=== PATIENT | male | born 1975 | race Caucasian/White ===

== ENCOUNTER 2023-04-15 08:03 | Outpatient (AMB) | payer OTHER, SELFPAY ==
--- NOTE | 2023-04-15 08:20 | AM.OFFWIN_ITS ---
Intake Vital Signs 04/15/23 08:27 BP 120/80 Blood Pressure Location Lt brachial Position Sitting Pulse 94 Pulse Source Pulse Oximeter Temp 98 F Temp Source Temporal Artery Scan Pulse Oximetry (%) 97 Oxygen Delivery Method Room Air Intake Visit Reasons: MARKETING SUPPORT COORDINATOR Sinus/respiratory [phone] Intake Note: Patient here for possible sinus infection. Trouble breathing, pressure in eyes and nose, headaches that started Tuesday night. Patient Tobacco Use Status: Current everyday Tobacco user Allergies No Known Allergies [No Known Allergies*] Allergy (Unverified 04/15/23 08:22) Do you need a note to return to daycare/school/sports/work: No HPI HPI Comments History of Present Illness Details This is a 47-year-old male presents to the office today for a sick visit. Patient reports sinus pressure/congestion, headaches/head pressure, dry cough, sore throat, and mild bilateral otalgia x3 days. Patient reports low- grade fevers. He reports positive sick contact with his , who had similar symptoms. He denies any chest pain or shortness of breath. He denies any abdominal pain or nausea/vomiting/diarrhea. [facility] Social History Patient Tobacco Use Status: Current everyday Tobacco user Review of Systems Const All systems reviewed & are unremarkable except as noted in HPI and below Reports body aches and Reports fever(s) ENT Reports nasal congestion, Reports nasal discharge, Reports sinus pain, Reports sinus pressure and Reports sore throat Card Denies chest pain, Denies chest pain at rest, Denies chest pain with activity, Denies dyspnea and Denies dyspnea on exertion Resp Reports cough, Denies dyspnea and Denies dyspnea on exertion GI Denies abdominal pain, Denies diarrhea, Denies nausea and Denies vomiting Physical Exam Vital Signs: Last Vital Signs Temp 98 F 04/15/23 08:27 Pulse 94 04/15/23 08:27 BP 120/80 04/15/23 08:27 Pulse Ox 97 04/15/23 08:27 Oxygen Delivery Method Room Air 04/15/23 08:27 Assessment & Plan Assessment & Plan (1) URI (upper respiratory infection): Code(s): J06.9 - Acute upper respiratory infection, unspecified Plan Patient presenting with signs and symptoms most consistent with acute respiratory tract infection. Recommended symptomatic management including rest, increased fluids, advil/tylenol for pain/fever, and over the counter throat lozenges/decongestants. PO amoxicillin 500 mg every 8 hours x5 days. Patient advised to follow up here or go to the emergency room for worsening/persistent symptoms. Patient verbalizes understanding and he is agreeable with the plan. Medications: New amoxicillin 500 mg PO Q8H 15 caps 0RF Coding Level of Care Code New Pt Level 3 (99023) Diagnoses URI (upper respiratory infection) J06.9
[2023-04-15 08:27] VITALS: BP 120/80; PULSE 94; TEMP 36.6; O2SAT 97
== END 2023-04-15 09:02 | disposition home or self-care (01) ==
PROVIDERS: PCP Internal Medicine; Visit Provider Physician Assistant Medical
DX: J06.9 Acute upper respiratory infection, unspecified (principal)
CPT/HCPCS: 99203

== ENCOUNTER 2024-04-23 08:15 | Outpatient (AMB) | payer OTHER, SELFPAY ==
--- NOTE | 2024-04-23 08:47 | AM.OFFWIN_ITS ---
Intake Vital Signs 04/23/24 08:54 Height 5 ft 10 in Weight 228 lb BMI 32.7 BP 130/84 Blood Pressure Location Rt brachial Position Sitting Pulse 75 Pulse Source Pulse Oximeter Temp 98.3 F Temp Source Oral Pulse Oximetry (%) 98 Oxygen Delivery Method Room Air Intake Visit Reasons: EP rash Intake Note: pt here c/o rash. Multiple spots. Started last weekend Patient Tobacco Use Status: Current everyday Tobacco user Allergies No Known Allergies [No Known Allergies*] Allergy (Verified 04/23/24 08:47) Do you need a note to return to daycare/school/sports/work: No HPI EP rash HPI Details 48 yr old male presents to the office fo r a sick visit. Has a rash in the scalp for the past few days. Oozing lesions with discomfirt. Skin under the left lower eyelid is swollen PFSH Social History Patient Tobacco Use Status: Current everyday Tobacco user Physical Exam Vital Signs: Last Vital Signs Temp 98.3 F 04/23/24 08:54 Pulse 75 04/23/24 08:54 BP 130/84 04/23/24 08:54 Pulse Ox 98 04/23/24 08:54 Oxygen Delivery Method Room Air 04/23/24 08:54 BMI result Body Mass Index 32.7 Skin Other: Scalp: Occipital area: 3 cm rash in the the area, oozing erythematous lesions with mccabe crusting within the hairline. Few lesions on the right arm and shoulder. Assessment & Plan Assessment & Plan (1) Rash: Code(s): R21 - Rash and other nonspecific skin eruption Plan: Folliculitis vs allergic dermatitis. Prednisone and Cephalexin added. Advised to remove neck jewellery. Tapering dose of prednisone. If sx do not improve to follow up here Coding Level of Care Code Est Pt Level 3 (22749) Diagnoses Rash R21
[2024-04-23 08:54] VITALS: BP 130/84; PULSE 75; TEMP 36.8; O2SAT 98; BMI 32.7
== END 2024-04-23 09:29 | disposition home or self-care (01) ==
PROVIDERS: PCP Internal Medicine; Visit Provider Internal Medicine
DX: R21 Rash and other nonspecific skin eruption (principal)
CPT/HCPCS: 99213

== ENCOUNTER 2024-05-09 08:04 | Outpatient (AMB) | payer OTHER, SELFPAY ==
--- NOTE | 2024-05-09 08:05 | MHC.OFFWIV ---
Intake Vital Signs 05/09/24 08:06 Height 5 ft 10 in Weight 230 lb BMI 33.0 BP 116/80 Blood Pressure Location Lt brachial Position Sitting Pulse 79 Pulse Source Pulse Oximeter Temp 98.4 F Temp Source Oral Pulse Oximetry (%) 97 Oxygen Delivery Method Room Air Intake Visit Reasons: Rash back of,arm pits (2nd [place] visit) Intake Note: pt c/o rash. Ongoing Patient Tobacco Use Status: Current everyday Tobacco user Allergies No Known Allergies [No Known Allergies*] Allergy (Verified 05/09/24 08:05) Do you need a note to return to daycare/school/sports/work: No HPI Rash back of,arm pits (2nd [place] visit) HPI Details This note is constructed using voice recognition software. While every effort has been made to ensure accuracy, home based assistant errors may have been included. The patient is a 48 year old male who presents to the clinic today with rash to scalp and arms. Patient was last seen in the walk-in clinic several weeks ago for similar and treated with antibiotics as well as steroid, he noted that he had a couple of days where it seemed like symptoms were improving, however they got worse and came back. He notes that the area on the scalp is itchy and it drains a yellow discharge. No fever, chills. He has no pain. No erythematous streaking PFSH Social History Patient Tobacco Use Status: Current everyday Tobacco user Review of Systems Const All systems reviewed & are unremarkable except as noted in HPI and below Physical Exam Vital Signs: Last Vital Signs Temp 98.4 F 05/09/24 08:06 Pulse 79 05/09/24 08:06 BP 116/80 05/09/24 08:06 Pulse Ox 97 05/09/24 08:06 Oxygen Delivery Method Room Air 05/09/24 08:06 BMI result Body Mass Index 33.0 Const General: cooperative, healthy appearing, comfortable, no acute distress and alert Orientation/consciousness: patient oriented x3 Limitations: no limitations Skin Other: Dry plaques with yellow-green discharge and scaliness in scalp, traveling down the neck. Similar lesions to the axilla. No erythema, no warmth. General skin exam: no rashes or lesions noted, elasticity normal and turgor normal Neuro General: patient oriented x3 Psych Appearance: grossly normal Mental Status: mental status grossly normal Speech and movement: Normal speech and movement present Affect: normal affect Assessment & Plan Assessment & Plan (1) Seborrheic dermatitis: Code(s): L21.9 - Seborrheic dermatitis, unspecified Plan: Previous note reviewed. Discussed possible treatment modalities, patient would like to try a additional prednisone as this has helped him in the past. We will do prednisone burst 5 days to help with symptomatic relief. Additionally we will treat with ketoconazole shampoo. Reviewed instructions for use. Advised patient that this may take 2-4 weeks for resolution of symptoms. 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 Plan See above for full details and plan. Medications: New ketoconazole 2% Apply shampoo to wet scalp, leaving in place for 5-10 minutes 2 times per week for 2 to 4 weeks 1 appl topical 2XW 4 weeks 120 mL 0RF Coding Level of Care Code Est Pt Level 4 (91359) Diagnoses Seborrheic dermatitis L21.9
[2024-05-09 08:06] VITALS: BP 116/80; PULSE 79; TEMP 36.9; O2SAT 97; BMI 33.0
== END 2024-05-09 09:05 | disposition home or self-care (01) ==
PROVIDERS: PCP Internal Medicine; Visit Provider Registered Nurse
DX: L21.9 Seborrheic dermatitis, unspecified (principal)
CPT/HCPCS: 99214

== ENCOUNTER 2024-08-08 08:01 | Outpatient (REF) | payer OTHER, SELFPAY ==
--- NOTE | ~2024-08-08 | XR_ITS ---
EXAMINATION: XR WRIST, RIGHT CLINICAL INFORMATION: Wrist pain COMPARISON: None available. TECHNIQUE: PA, lateral, and oblique views of the right wrist. FINDINGS: Diffuse osteopenia. Carpal alignment normal. There is no acute fracture, dislocation or destructive lesion. There is an old fifth metacarpal fracture observed. XR/XR wrist RT min 3V IMPRESSION: No acute findings. Electronically signed by: Parag Rivera MD 08/08/2024 12:08 PM [facility]
== END 2024-08-08 08:02 | disposition home or self-care (01) ==
LOC: HO.HMGCX 08:01
PROVIDERS: PCP Internal Medicine; Visit Provider Registered Nurse
DX: M25.531 Pain in right wrist (principal)
CPT/HCPCS: 73110; 99212

== ENCOUNTER 2024-08-08 08:01 | Outpatient (AMB) | payer OTHER, SELFPAY ==
[2024-08-08 08:07] VITALS: BP 130/98; PULSE 73; O2SAT 98
--- NOTE | 2024-08-08 08:07 | MHC.OFFWIV ---
Intake Vital Signs 08/08/24 08:07 Weight 232 lb 6 oz BP 130/98 H Blood Pressure Location Lt brachial Position Sitting Pulse 73 Pulse Source Pulse Oximeter Pulse Oximetry (%) 98 Oxygen Delivery Method Room Air Intake Visit Reasons: EP RT wrist pain Intake Note: Patient here for right wrist pain that started a few days ago. Having difficulty doing basic tasks like putting things on. Patient Tobacco Use Status: Current everyday Tobacco user Allergies No Known Allergies [No Known Allergies*] Allergy (Verified 08/08/24 08:08) Do you need a note to return to daycare/school/sports/work: No HPI EP RT wrist pain HPI Details This note is constructed using voice recognition software. While every effort has been made to ensure accuracy, pediatric speech language pathologist errors may have been included. The patient is a 48 year old male who presents to the clinic today with right wrist pain for the past 3 days. He notes that he is right-hand dominant. He typically sleeps on his right side, however has been unable to due to the pain. He reports that Tuesday into Tuesday he had a fairly aggressive dream in which he was fighting, and when he woke up he was pushing his . He does not know if he struck his wrist on anything prior to that, however after a few hours of waking up the pain increased in his wrist. He reports the pain is in the medial aspect worse on lateral deviation, and makes it hard for him to make a fist, or flex the wrist. He reports that he is unable to extend the wrist, but medial deviation is intact. He reports some swelling. He also notes that he had a small scratch on his hand that occurred the day before which he was itching, he was unsure if this had led to an infection. He denies redness or warmth. He takes tramadol and Celebrex for pain routinely, and they have minimally helped the pain. He has also used an Fletcher wrap overnight, which has minimally helped the pain. He tried ice which he does not feel has helped at all. He has not had any previous injury to the right wrist, nor surgery. [facility] Social History Patient Tobacco Use Status: Current everyday Tobacco user Review of Systems Const All systems reviewed & are unremarkable except as noted in HPI and below Physical Exam Vital Signs: Last Vital Signs Pulse 73 08/08/24 08:07 BP 130/98 H 08/08/24 08:07 Pulse Ox 98 08/08/24 08:07 Oxygen Delivery Method Room Air 08/08/24 08:07 Const General: cooperative, healthy appearing, comfortable, no acute distress and well developed Orientation/consciousness: patient oriented x3 Limitations: no limitations Resp Effort & Inspection: normal respiratory effort and able to speak in complete sentences Skin General skin exam: no rashes or lesions noted Neuro General: patient oriented x3 Extrem Other: Right wrist reduced ROM due to pain. TTP base of 1st digit, positive Suleiman. Strength 5/5 equal bilateral. Distal neurovascular exam intact. General: Yes normal to inspection Results Reviewed Results Reviewed: XR images contemporaneously read by me without findings of fracture or deformity. Assessment & Plan Assessment & Plan (1) Right wrist pain: Code(s): M25.531 - Pain in right wrist Plan: Xray ordered due to the fact that he is unsure if he had a trauma to the area. His image appears to have no fracture or deformity. We discussed likelihood that he has sprained his wrist, versus an early tendinitis. Fletcher wrap applied, advised ice, and use of his current medications. He may add Tylenol to his current treatment plan, but I would defer adding NSAIDs given his use of celecoxib. Advised follow up with primary care with worsening or failure to resolve, as if this continues he may benefit from physical therapy. Plan See above for full details and plan. Orders: Orders XR wrist RT min 3V Today M25.531 - Pain in right wrist Coding Level of Care Code Est Pt Level 4 (37760) Diagnoses Right wrist pain M25.531
== END 2024-08-08 10:05 | disposition home or self-care (01) ==
PROVIDERS: PCP Internal Medicine; Visit Provider Registered Nurse
DX: M25.531 Pain in right wrist (principal)